=== PATIENT | female | born 1995 | race Two or more races ===

== ENCOUNTER 2024-04-11 20:53 | Emergency (ER) | payer OTHER ==
[~2024-04-11] VITALS: Ht 157.5 cm; Wt 71.7 kg
[2024-04-11 21:09] VITALS: BP 128/82; O2SAT 100
[2024-04-11] MEDS ORDERED: IPRATROPIUM/ALBUTEROL SULFATE 3 ML AMPUL.NEB IH ONE (22:00)
[2024-04-11] MEDS ORDERED: ALBUTEROL SULFATE 3 ML/2.5 MG AMPUL.NEB IH SCH (22:00)
[2024-04-11 23:19] LABS: HEMATOCRIT 39.6 % (36.0-45.00); HEMOGLOBIN 13.3 g/dL (12.0-15.00); MEAN CORPUSCULAR HEMOGLOBIN 31.8 pg (27.00-32.0); MEAN CORPUSCULAR HGB CONC 33.5 g/dl (32.0-36.0); PLATELET COUNT 213 K/uL (150-450); RED BLOOD COUNT 4.17 M/uL (4.00-6.00); RED CELL DISTRIBUTION WIDTH 13.2 % (11.5-14.5)
[2024-04-12] MEDS ORDERED: FLUTICASONE PRO12 GM IH (01:10)
[2024-04-12] MEDS ORDERED: VENTOLIN HFA18 GM IH (01:10)
[2024-04-12] MEDS ORDERED: ALBUTEROL2.5 MG/3 M IH (01:17)
== END 2024-04-12 01:21 ==
LOC: ER 20:55
PROVIDERS: Preventive Medicine Public Health & General Preventive Medicine
DX: O99.511 Diseases of the respiratory system complicating pregnancy, first trimester (principal); O26.811 Pregnancy related exhaustion and fatigue, first trimester; Z3A.01 Less than 8 weeks gestation of pregnancy; Z20.822 Contact with and (suspected) exposure to COVID-19

== ENCOUNTER 2024-05-20 18:59 | Emergency (ER) | payer OTHER ==
[~2024-05-20] VITALS: Ht 157.5 cm; Wt 73.9 kg
[~2024-05-20 18:59] MED LIST: ALBUTEROL2.5 MG/3 M IH; FLUTICASONE PRO12 GM IH; VENTOLIN HFA18 GM IH
[2024-05-20] MEDS ORDERED: IPRATROPIUM BROMIDE 0.5 MG/2.5 ML AMPUL.NEB IH ONE (20:30)
[2024-05-20] MEDS ORDERED: METHYLPREDNISOLONE SOD SUCC 40 MG VIAL IM ONE (20:30)
[2024-05-20] MEDS ORDERED: METHYLPREDNISOLONE SOD SUCC 40 MG VIAL ONE (20:42)
[2024-05-20 21:22] LABS: HEMATOCRIT 37.8 % (36.0-45.00); HEMOGLOBIN 13.1 g/dL (12.0-15.00); MEAN CELL VOLUME 92.8 fL (80.00-100.00); MEAN CORPUSCULAR HEMOGLOBIN 32.1 pg (27.00-32.0); MEAN CORPUSCULAR HGB CONC 34.6 g/dl (32.0-36.0); PLATELET COUNT 232 K/uL (150-450); RED BLOOD COUNT 4.08 M/uL (4.00-6.00); RED CELL DISTRIBUTION WIDTH 13.8 % (11.5-14.5)
== END 2024-05-20 21:56 | disposition home or self-care (01) ==
LOC: ER 19:01
PROVIDERS: General Practice
DX: O99.511 Diseases of the respiratory system complicating pregnancy, first trimester (principal); Z3A.10 10 weeks gestation of pregnancy; F41.8 Other specified anxiety disorders; J45.901 Unspecified asthma with (acute) exacerbation; Z20.822 Contact with and (suspected) exposure to COVID-19
CPT/HCPCS: 36415; 96372; J3490

== ENCOUNTER 2024-06-06 10:16 | Outpatient (CLI) | payer OTHER | END 2024-06-06 10:18 | disposition home or self-care (01) | LOC: PRENATAL 10:16 | PROVIDERS: ATTEND Obstetrics & Gynecology Maternal & Fetal Medicine | DX: O36.80X0 Pregnancy with inconclusive fetal viability, not applicable or unspecified (principal); Z36.82 Encounter for antenatal screening for nuchal translucency; Z14.8 Genetic carrier of other disease; Z3A.12 12 weeks gestation of pregnancy ==

== ENCOUNTER 2024-06-18 08:15 | Emergency (ER) | payer OTHER ==
[~2024-06-18] VITALS: Ht 160 cm; Wt 79.4 kg
[2024-06-18] MEDS ORDERED: ACETAMINOPHEN 500 MG GEL..CAP PO ONE (09:51)
[2024-06-18 09:57] LABS: HEMATOCRIT 39.3 % (36.0-45.00); HEMOGLOBIN 13.9 g/dL (12.0-15.00); MEAN CELL VOLUME 92.7 fL (80.00-100.00); MEAN CORPUSCULAR HEMOGLOBIN 32.8 pg (27.00-32.0); MEAN CORPUSCULAR HGB CONC 35.4 g/dl (32.0-36.0); PLATELET COUNT 164 K/uL (150-450); RED BLOOD COUNT 4.24 M/uL (4.00-6.00); RED CELL DISTRIBUTION WIDTH 13.8 % (11.5-14.5)
[2024-06-18 10:27] LABS: PH,URINE 5.5 (5.0-8.0); URINE APPEARANCE Clear; URINE BILIRRUBIN Negative (NEGATIVE); URINE BLOOD Negative; URINE COLOR Yellow; URINE GLUCOSE Negative (NEGATIVE); URINE KETONE Negative (NEGATIVE); URINE LEUKOCYTE Negative; URINE NITRATE Negative; URINE PROTEIN Negative (NEGATIVE); URINE UROBILINOGEN 0.2 E.U./dl
[2024-06-18 10:32] LABS: URINE BACTERIA 130.9 uL (0.0-1933); URINE EPITHELIAL CELLS 9.3 uL (0.0-38.8); URINE WBC 4.2 uL (0.0-23.2)
[2024-06-18 10:35] LABS: URINE CAST 0.14 uL (0.0-1.40); URINE RBC 1.7 uL (0.0-20.8)
== END 2024-06-18 10:55 | disposition home or self-care (01) ==
LOC: ER 08:17
PROVIDERS: Emergency Medicine
DX: O99.512 Diseases of the respiratory system complicating pregnancy, second trimester (principal); Z3A.14 14 weeks gestation of pregnancy; J06.9 Acute upper respiratory infection, unspecified; Z20.822 Contact with and (suspected) exposure to COVID-19

== ENCOUNTER 2024-06-23 08:25 | Emergency (ER) | payer OTHER ==
[~2024-06-23] VITALS: Ht 157.5 cm; Wt 80.7 kg
[2024-06-23] MEDS ORDERED: FOLIC ACID20 MG PO (08:33)
[2024-06-23] MEDS ORDERED: PRENATAL + DHA1 EAC1 PO (08:33)
[2024-06-23] MEDS ORDERED: DIPHENHYDRAMINE HCL 50 MG/ML VIAL 1ML IV ONE (10:00)
[2024-06-23] MEDS ORDERED: DIPHENHYDRAMINE HCL 50 MG/ML VIAL 1ML ONE (10:03)
[2024-06-23 10:58] LABS: HEMATOCRIT 40.1 % (36.0-45.00); HEMOGLOBIN 13.9 g/dL (12.0-15.00); MEAN CELL VOLUME 92.3 fL (80.00-100.00); MEAN CORPUSCULAR HGB CONC 34.6 g/dl (32.0-36.0); RED BLOOD COUNT 4.34 M/uL (4.00-6.00); RED CELL DISTRIBUTION WIDTH 13.6 % (11.5-14.5)
[2024-06-23 11:11] LABS: PLATELET COUNT 107 K/uL (150-450)
[2024-06-23 11:34] LABS: ALBUMIN 3.2 gm/dL (3.4-5.0); BILIRUBIN TOTAL 0.23 mg/dL (0.3-1.2); CALCIUM 8.5 mg/dL (8.5-10.1); CREATININE SERUM 0.4 mg/dL (0.55-1.02); GFR 192.94; GLOBULINA 3.3 G/DL (2.4-3.5); POTASSIUM 3.43 mEq/L (3.5-5.1); TOTAL PROTEIN 6.5 gm/dL (6.4-8.2)
[2024-06-23 12:17] LABS: PH,URINE 6.5 (5.0-8.0); URINE APPEARANCE Clear; URINE BILIRRUBIN Negative (NEGATIVE); URINE BLOOD Negative; URINE COLOR Yellow; URINE GLUCOSE Negative (NEGATIVE); URINE KETONE Negative (NEGATIVE); URINE LEUKOCYTE Negative; URINE NITRATE Negative; URINE PROTEIN Trace (NEGATIVE); URINE UROBILINOGEN 0.2 E.U./dl
[2024-06-23 12:21] LABS: URINE BACTERIA 335.2 uL (0.0-1933); URINE EPITHELIAL CELLS 20.2 uL (0.0-38.8); URINE WBC 3.6 uL (0.0-23.2)
== END 2024-06-23 16:07 ==
LOC: ER 08:28
PROVIDERS: General Practice
DX: R53.81 Other malaise (principal); A92.8 Other specified mosquito-borne viral fevers

== ENCOUNTER 2024-08-01 08:05 | Outpatient (CLI) | payer OTHER ==
[~2024-08-01 08:05] MED LIST changes: +FOLIC ACID20 MG PO; +PRENATAL + DHA1 EAC1 PO
== END 2024-08-01 08:06 | disposition home or self-care (01) ==
LOC: PRENATAL 08:05
PROVIDERS: ATTEND Obstetrics & Gynecology Maternal & Fetal Medicine
DX: O44.00 Complete placenta previa NOS or without hemorrhage, unspecified trimester (principal); Z3A.21 21 weeks gestation of pregnancy

== ENCOUNTER 2024-09-08 13:18 | Emergency (ER) | payer OTHER ==
[~2024-09-08] VITALS: Ht 160 cm; Wt 90.7 kg
[2024-09-08] MEDS ORDERED: ONDANSETRON HCL 2 MG/ML VIAL IV ONE (14:30)
[2024-09-08] MEDS ORDERED: METHYLPREDNISOLONE SOD SUCC 125 MG VIAL IV ONE (14:30)
[2024-09-08] MEDS ORDERED: GUAIFENESIN/DEXTROMETHORPHAN 100MG/10ML BLIST.PACK PO ONE ×2 (14:30→14:42)
[2024-09-08] MEDS ORDERED: LEVALBUTEROL HCL 1.25 MG/3 ML SOLUTION IH ONE ×3 (14:40→16:00)
[2024-09-08] MEDS ORDERED: IPRATROPIUM BROMIDE 0.5 MG/2.5 ML AMPUL.NEB IH ONE ×4 (14:41→16:11)
[2024-09-08] MEDS ORDERED: METHYLPREDNISOLONE SOD SUCC 125 MG VIAL ONE (14:42)
[2024-09-08] MEDS ORDERED: ONDANSETRON HCL 2 MG/ML VIAL ONE (14:42)
[2024-09-08 14:46] LABS: ABG PH 7.432 (7.35-7.45); ABG PO2 95.3 mmHg (80-100); BASE EXCESS -0.8 mmol/l; BICARBONATE 22.8 mmol/l (23-25); SaO2 97.6 %; Tco2 23.9 mmol/l
[2024-09-08 14:54] LABS: HEMATOCRIT 37.5 % (36.0-45.00); HEMOGLOBIN 13.1 g/dL (12.0-15.00); MEAN CELL VOLUME 93.2 fL (80.00-100.00); MEAN CORPUSCULAR HEMOGLOBIN 32.5 pg (27.00-32.0); MEAN CORPUSCULAR HGB CONC 34.9 g/dl (32.0-36.0); PLATELET COUNT 197 K/uL (150-450); RED BLOOD COUNT 4.03 M/uL (4.00-6.00); RED CELL DISTRIBUTION WIDTH 14.1 % (11.5-14.5)
[2024-09-08 14:56] LABS: allen test SATISFACTORY; mode ROOM AIR; o2 21 %; puncture site RADIAL LEFT
[2024-09-08 15:02] LABS: URINE APPEARANCE Cloudy; URINE BILIRRUBIN Negative (NEGATIVE); URINE BLOOD Negative; URINE COLOR Yellow; URINE GLUCOSE Negative (NEGATIVE); URINE KETONE Trace (NEGATIVE); URINE LEUKOCYTE Trace; URINE NITRATE Negative; URINE PROTEIN Trace (NEGATIVE); URINE UROBILINOGEN 0.2 E.U./dl
[2024-09-08 15:05] LABS: URINE EPITHELIAL CELLS 117.2 uL (0.0-38.8); URINE WBC 47.4 uL (0.0-23.2)
[2024-09-08 15:21] LABS: URINE CAST 0.44 uL (0.0-1.40); URINE RBC 1.7 uL (0.0-20.8)
[2024-09-08 15:24] LABS: URINE YEAST FEW /hpf
[2024-09-08 15:29] LABS: BILIRUBIN TOTAL 0.16 mg/dL (0.3-1.2); CREATININE SERUM 0.49 mg/dL (0.55-1.02); GFR 152.66; GLOBULINA 3.7 G/DL (2.4-3.5); POTASSIUM 3.3 mEq/L (3.5-5.1); TOTAL PROTEIN 6.7 gm/dL (6.4-8.2)
[2024-09-08 15:32] LABS: COVID-19 AG NEGATIVE (NEGATIVE); INFLUENZA A AG NEGATIVE (NEGATIVE)
[2024-09-08] MEDS ORDERED: LEVALBUTEROL HCL 0.63 MG/3 ML SOLUTION IH ONE (16:11)
[2024-09-08] MEDS ORDERED: FLUTICASONE PRO12 GM IH (18:14)
[2024-09-08] MEDS ORDERED: XOPENEX CO1.25 MG/0. IH (18:14)
[2024-09-08] MEDS ORDERED: TUSSIN DM LIQU118 ML PO (18:14)
== END 2024-09-08 18:21 | disposition home or self-care (01) ==
LOC: ER 13:18
PROVIDERS: Emergency Medicine
DX: O99.512 Diseases of the respiratory system complicating pregnancy, second trimester (principal); Z3A.25 25 weeks gestation of pregnancy; J45.909 Unspecified asthma, uncomplicated; Z20.822 Contact with and (suspected) exposure to COVID-19

== ENCOUNTER → 2024-09-24 11:03 | Outpatient (CLI) | payer OTHER ==
[~2024-09-24 11:03] MED LIST changes: +TUSSIN DM LIQU118 ML PO; +XOPENEX CO1.25 MG/0. IH
== END | disposition home or self-care (01) ==
LOC: PRENATAL 11:03
PROVIDERS: ATTEND Obstetrics & Gynecology Maternal & Fetal Medicine
DX: O26.849 Uterine size-date discrepancy, unspecified trimester (principal); O36.8199 Decreased fetal movements, unspecified trimester, other fetus; Z3A.29 29 weeks gestation of pregnancy

== ENCOUNTER → 2024-11-05 09:20 | Outpatient (CLI) | payer OTHER | END | disposition home or self-care (01) | LOC: PRENATAL 09:20 | PROVIDERS: ATTEND Obstetrics & Gynecology | DX: O26.849 Uterine size-date discrepancy, unspecified trimester (principal); O36.8199 Decreased fetal movements, unspecified trimester, other fetus; O24.419 Gestational diabetes mellitus in pregnancy, unspecified control; Z3A.35 35 weeks gestation of pregnancy ==

== ENCOUNTER 2024-11-14 03:48 | Inpatient (IN) | payer OTHER ==
[~2024-11-14] VITALS: Ht 157.5 cm; Wt 2.3 kg
[2024-11-14] VITALS (7 sets, daily range): BP systolic 92–139; BP diastolic 51–79
[2024-11-14] MEDS ORDERED: RINGERS SOLUTION,LACTATED 1,000 ML IV SCH (04:00)
[2024-11-14] MEDS ORDERED: AMPICILLIN SODIUM 2,000 MG VIAL IV ONE (05:15)
[2024-11-14] MEDS ORDERED: BETAMETHASONE ACETATE,SOD PHOS 30 MG/5 ML ML IM ONE (06:00)
[2024-11-14] MEDS ORDERED: TERBUTALINE SULFATE 1 MG/ML AMPUL SUBCUTANEO ONE ×2 (06:00→10:30)
[2024-11-14 06:13] LABS: BASO % 0.2 % (0.1-1.2); EOS # 0.06 (0.04-0.54); EOS % 0.7 % (0.7-7.0); LYMPH # 1.92 (1.18-3.74); LYMPH % 22.8 % (19.3-53.1); MEAN PLATELET VOLUME 13.90 fl (9.4-12.4); MONO # 0.75 (0.24-0.82); MONO % 8.9 % (4.7-12.5); NEUT # 5.65 (1.56-6.13); NEUT % 67.0 % (34.0-71.1); RED CELL DISTRIBUTION WIDTH 12.9 % (11.6-14.4)
[2024-11-14 06:16] LABS: URINE APPEARANCE Clear; URINE BILIRRUBIN Negative (NEGATIVE); URINE BLOOD Small; URINE COLOR Yellow; URINE GLUCOSE Negative (NEGATIVE); URINE KETONE Negative (NEGATIVE); URINE LEUKOCYTE Negative; URINE NITRATE Negative; URINE UROBILINOGEN 0.2 E.U./dl
[2024-11-14 06:20] LABS: URINE BACTERIA 59.9 uL (0.0-1933); URINE CAST 2.93 uL (0.0-1.40); URINE EPITHELIAL CELLS 38.2 uL (0.0-38.8); URINE RBC 191.9 uL (0.0-20.8); URINE WBC 17.5 uL (0.0-23.2)
[2024-11-14 06:35] LABS: ALT/SGPT 19.0 U/L (12-78); AST/SGOT 13.0 U/L (15-37); BILIRUBIN TOTAL 0.18 mg/dL (0.3-1.2); BUN CREA RATIO 21.0 (7.0-25.0); CREATININE SERUM 0.42 mg/dL (0.55-1.02); GFR 180.98; GLOBULINA 2.8 G/DL (2.4-3.5); GLUCOSE FASTING 77.0 mg/dL (65-100); OSMOLALITY SERUM 279.0 MOSM/KG (275-295)
[2024-11-14 06:46] LABS: INR < 0.93
[2024-11-14 07:00] LABS: URINE PROTEIN 100 (NEGATIVE)
[2024-11-14] MEDS ORDERED: AMPICILLIN SODIUM 1,000 MG VIAL IV SCH (09:00)
[2024-11-14] MEDS ORDERED: NIFEDIPINE 30 MG TAB.SA.OSM PO SCH ×2 (10:19→17:00)
[2024-11-14] MEDS ORDERED: MORPHINE SULFATE 4 MG/ML CARTRIDGE IV ONE ×2 (13:45→22:45)
[2024-11-14] MEDS ORDERED: DIPHENHYDRAMINE HCL 50 MG/ML VIAL 1ML IV NR (18:30)
[2024-11-15] VITALS (9 sets, daily range): BP systolic 92–154; BP diastolic 53–78
[2024-11-15] MEDS ORDERED: MORPHINE SULFATE 4 MG/ML CARTRIDGE IV ONE ×2 (04:00→08:45)
[2024-11-15] MEDS ORDERED: BETAMETHASONE ACETATE,SOD PHOS 30 MG/5 ML ML IM ONE (06:00)
[2024-11-15] MEDS ORDERED: OXYTOCIN 20 UNITS/500ML RL PIGGYBAG IV SCH (11:30)
[2024-11-15] MEDS ORDERED: ACETAMINOPHEN 500 MG GEL..CAP PO PRN (14:45)
[2024-11-15] MEDS ORDERED: OXYTOCIN 1,000 ML IV SCH (14:45)
[2024-11-15] MEDS ORDERED: CHLORHEXIDINE GLUCONATE 120 ML BOTTLE TOP ONE (14:45)
[2024-11-15] MEDS ORDERED: ERYTHROMYCIN BASE OPHT 1GM EACH TUBE OP ONE (15:15)
[2024-11-15 18:29] LABS: BASO % 0.1 % (0.1-1.2); EOS # 0.00 (0.04-0.54); EOS % 0.0 % (0.7-7.0); LYMPH # 1.01 (1.18-3.74); LYMPH % 5.6 % (19.3-53.1); MEAN PLATELET VOLUME 13.80 fl (9.4-12.4); MONO # 0.54 (0.24-0.82); MONO % 3.0 % (4.7-12.5); NEUT # 16.28 (1.56-6.13); NEUT % 90.8 % (34.0-71.1); RED CELL DISTRIBUTION WIDTH 12.7 % (11.6-14.4)
[2024-11-16 03:28] VITALS: BP 107/61
[2024-11-16 08:28] VITALS: BP 110/69
[2024-11-16] MEDS ORDERED: PNV,CALCIUM 72/IRON/FOLIC ACID 1 TAB TABLET PO SCH (09:00)
[2024-11-16 18:35] VITALS: BP 117/75
[2024-11-17 00:45] VITALS: BP 120/76
[2024-11-17 08:24] VITALS: BP 90/60
[2024-11-17 15:50] VITALS: BP 114/78
[2024-11-17 23:32] VITALS: BP 127/66
[2024-11-18 08:00] VITALS: BP 102/64
== END 2024-11-18 16:26 | disposition home or self-care (01) | DRG 805 ==
LOC: OBS/DEL 03:48 → LDR 05:46 → OB/GYN 11-15 16:08
PROVIDERS: Obstetrics & Gynecology; ADMIT Obstetrics & Gynecology; ATTEND Obstetrics & Gynecology
PROC: 4A1HXCZ Monitoring of Products of Conception, Cardiac Rate, External Approach (ICD-10-PCS; 2024-11-14)
PROC: BY4FZZZ Ultrasonography of Third Trimester, Single Fetus (ICD-10-PCS; 2024-11-14)
PROC: 10E0XZZ Delivery of Products of Conception, External Approach (ICD-10-PCS; principal; 2024-11-15)
PROC: 0UQG7ZZ Repair Vagina, Via Natural or Artificial Opening (ICD-10-PCS; 2024-11-15)
DX: O71.4 Obstetric high vaginal laceration alone (principal); O60.14X0 Preterm labor third trimester with preterm delivery third trimester, not applicable or unspecified; Z37.0 Single live birth; O42.013 Preterm premature rupture of membranes, onset of labor within 24 hours of rupture, third trimester; Z3A.35 35 weeks gestation of pregnancy